=== PATIENT | female | born 1990 | race Caucasian/White ===

== ENCOUNTER 2016-10-08 16:03 | Emergency (ER) | payer OTHER ==
[~2016-10-08] VITALS: Ht 162.6 cm; Wt 59.1 kg
[~2016-10-08 16:03] MED LIST: CEPH500C3 PO; IBUP800 PO; PRENTAB72 PO
[2016-10-08 16:05] VITALS: BP 122/78; PULSE 90; RESP 16; TEMP 98; O2SAT 98
[2016-10-08 16:54] LABS: BACTERIA, URINE RARE /hpf; BLOOD, URINE MOD (NEG); COMMENT (UR) CULT NOT INDICATED; CULTURE IF INDICATED CULT NOT INDICATED; GLUCOSE,URINE NEG (NEG); KETONE, URINE TRACE mg/dL (NEG); MUCUS URINE FEW /lpf (OCC); NITRITE,URINE NEG (NEG); PH, URINE 6.5 (5.0-8.5); SQUAMOUS EPITHELIAL CELL URINE 3 /hpf (0-5); URINE COLOR YELLOW (YELLW/STRAW)
--- NOTE | 2016-10-08 17:28 | PD ---
HPI Chief Complaint: Headache Time Seen by Provider: 17:25 Travel History International Travel<30 days: No Contact w/Intl Traveler<30days: No Traveled to known affect area: No History of Present Illness HPI 26-year-old female with multiple complaints. First complaint is left lower tooth pain for approximately one week with worsening. She used an over-the- counter cement tooth gilbert and has had increasing pain over the past few days. Denies facial erythema, edema. Pain is worse with chewing food and touch to the tooth. Denies fever, chills, nausea, vomiting. Second complaint is right- sided headache. She has history of headaches and this is similar to past headaches. Pounding in nature. Reports photophobia. Denies vomiting. Denies focal deficits or weakness. Denies change in mentation, confusion, disorientation. Took 2 Percocets with minimal relief of headache or tooth pain. Used to have to take Imitrex for her headaches but hasn't taken it because she hasn't had a headache in a while. Third complaint is dysuria 4 days. Denies urgency, hesitancy, frequency. Reports hematuria. Reports history of kidney stones. Denies abdominal pain, flank pain, back pain. Denies vaginal discharge, odor, itch, lesions. Allergies to penicillins and wasp. No other modifying factors or associated signs and symptoms. PFSH Past Medical History Asthma: No Autoimmune Disease: No Blood Disorders: No Anxiety: No Depression: No Heart Rhythm Problems: No Cardiovascular Problems: No Chest Pain: No Cystic Fibrosis: No Diminished Hearing: No Gastrointestinal Disorders: No Genitourinary: Yes (KIDNEY INFECTION 03/2006) Headaches: Yes Hypertension: No Musculoskeletal: No Neurologic: No Psychiatric: No Reproductive: No Respiratory: No Immunizations Current: Yes Migraines: No Seizures: No Sickle Cell Disease: No Sleep Apnea: No ?: Not : 2 Para: 1 Miscarriage: 1 : 0 Ectopic : No Ovarian Cysts: No Tubal Ligation: No Past Surgical History Abdominal Surgery: No Appendectomy: No Cardiac Surgery: No Cholecystectomy: No Ear Surgery: No Endocrine Surgery: No Eye Surgery: No Genitourinary Surgery: No Gynecologic Surgery: No Hysterectomy: No Neurologic Surgery: No Oral Surgery: Yes (CYNST REMOVAL UNDER TONGUE ABOUT 2 YO. AND SURGERY ON TEETH 12 YO.) Thoracic Surgery: No Other Surgery: Yes Social History Alcohol Use: No Tobacco Use: Yes (09/17 ppd) Substance Use: No Allergies-Medications (Allergen,Severity, Reaction): Coded Allergies: Amoxicillin (Verified Allergy, Severe, HIVES AND THROAT CLOSES, 10/08/16) Penicillin (Verified Allergy, Severe, HIVES/THROAT CLOSES, 10/08/16) Wasp (Verified Allergy, Severe, HIVES, 10/08/16) Reported Meds & Prescriptions Reported Meds & Active Scripts Active Ibuprofen 800 Mg Tab 800 Mg PO Q6HR PRN Magic Mouthwash Adult Liq (Multi-Ingredient Mouthwash/Gargle) 120 Ml Susp 5 Ml SWISH-SPIT Q3HR NEB PRN Each 5 mL contains: Nystatin 200,000 units, Diphenhydramine 4.25 mg, Viscous Lidocaine 10 mg, Foss syrup 0.8 mL Peridex Liq (Chlorhexidine Gluconate (Mouth) Liq) 0.12% Soln 15 Ml SWISH-SPIT BID 10 Days Clindamycin (Clindamycin HCl) 150 Mg Cap 450 Mg PO Q6H 10 Days Review of Systems Except as stated in HPI: all other systems reviewed are Neg Physical Exam Narrative GENERAL: Well-nourished, well-developed patient, in no acute distress SKIN: Warm and dry. HEAD: Atraumatic. Normocephalic. No facial droop noted. Tongue midline. No facial erythema or edema. No lymphadenopathy. No tenderness on palpation. EYES: Pupils equal and round at 4 mm with brisk reaction. No scleral icterus. No injection or drainage. PERRLA. EOMI. EARS: Bilateral pinnae and external canals appear within normal limits. Bilateral tympanic membranes without erythema, dullness or perforation. ENT: Mucosa pink and moist. No erythema or exudates. No uvular edema. No uvular , palatal, or tonsillar deviation. Airway patent. MOUTH: Mucous membranes moist, no lesions, tongue and gums appear normal. Left lower first molar with tenderness on palpation; without erythema, edema, drainage; no obvious abscess noted. NECK: Trachea midline. No lymphadenopathy. CARDIOVASCULAR: Regular rate and rhythm. No murmur appreciated. RESPIRATORY: No accessory muscle use. Clear to auscultation. Breath sounds equal bilaterally. GASTROINTESTINAL: Abdomen soft, non-tender, nondistended. Hepatic and splenic margins not palpable. Bowel sounds are active 4 quadrants. Bladder nontender and nondistended. MUSCULOSKELETAL: No obvious deformities. No clubbing. No cyanosis. No edema. BACK: No CVA tenderness NEUROLOGICAL: Awake and alert. Oriented 3. No obvious cranial nerve deficits. Motor grossly within normal limits. Normal speech. No ataxia. No mid -line drift. Moves all extremities. 5/5 strength to all extremities. PSYCHIATRIC: Appropriate mood and affect; insight and judgment normal. Data Data Last Documented VS Vital Signs Date Time Temp Pulse Resp B/P Pulse Ox O2 Delivery O2 Flow Rate FiO2 10/08/16 16:05 98.0 90 16 122/78 98 Room Air Orders Urinalysis - C+S If Indicated (10/08/16 16:10) Ketorolac Inj (Toradol Inj) (10/08/16 17:30) Ondansetron Odt (Zofran Odt) (10/08/16 17:30) Diphenhydramine (Benadryl) (10/08/16 17:30) Labs Laboratory Tests Test 10/08/16 16:23 Urine Color YELLOW Urine Turbidity CLEAR Urine pH 6.5 Urine Specific [place] 1.024 Urine Protein 100 mg/dL Urine Glucose (UA) NEG mg/dL Urine Ketones TRACE mg/dL Urine Occult Blood MOD Urine Nitrite NEG Urine Bilirubin NEG Urine Urobilinogen 2.0 MG/DL Urine Leukocyte Esterase NEG Urine RBC 119 /hpf Urine WBC 1 /hpf Urine Squamous Epithelial 3 /hpf Cells Urine Bacteria RARE /hpf Urine Mucus FEW /lpf Microscopic Urinalysis Comment CULT NOT INDICATED MDM Medical Decision Making Medical Screen Exam Complete: Yes Emergency Medical Condition: Yes Medical Record Reviewed: Yes Differential Diagnosis Acute headache, dentalgia, dental abscess, cystitis, UTI, kidney stone Narrative Course 26-year-old female with multiple complaints. First complaint is consistent with acute headache that is consistent with past headaches. Second complaint is consistent with left lower dentalgia. Third complaint is dysuria. Urinalysis ordered. Toradol, Zofran, Benadryl administered in the ER. 1720: Urinalysis with no signs of infection; with occult blood and high RBCs. Patient denies being on her menses. Does have history of kidney stones. Denies abdominal pain, flank pain, low back pain at this time. Reports improvement in headache. Clindamycin, Magic mouthwash, Peridex mouth rinse, ibuprofen prescribed for home. Emergency information dental sheet provided. Instructed patient to follow up with dentist and she verbalized understanding and agreement. Patient is medically cleared and stable for discharge. Discussed reasons to return to the emergency department. Instructed patient to follow up with primary care provider. Patient agrees with treatment plan. The patients vital signs are stable and the patient is stable for outpatient follow- up and treatment. Patient discharged home, stable and in no acute distress. Diagnosis Primary Impression: Dentalgia Additional Impressions: Acute headache Qualified Code: R51 - Acute nonintractable headache, unspecified headache type Cystitis Referrals: Dentist Primary Care Physician Patient Instructions: Acute Headache (ED), Dental Abscess (ED), Dysuria (ED), General Instructions, Tooth Extraction (ED) Departure Forms: Tests/Procedures, Work Release Enter return to work date: Oct 09, 2016 Additional Instructions: Ibuprofen or Tylenol as directed and as needed to reduce headache Get plenty of rest: do not over sleep rest and relax in a dark, quiet room as needed Place an ice pack on the back of her neck to reduce head pain as needed Keep a headache diary of what triggers her headaches and what treatment is most effective Avoid identifiable triggers Avoid smoking, alcohol and caffeine consumption Reduce stress Follow-up with primary care provider within 1-2 days Follow-up with neurology Return immediately to the emergency department with worsening symptoms Take antibiotics as prescribed and complete full course Take Pyridium for bladder spasms: Pyridium will turn your urine bright orange Drink plenty of fluids Maintain good personal hygiene Follow-up with primary care provider Return to the emergency department immediately with worsening of symptoms Complete full course of antibiotics Ibuprofen as directed and as needed to reduce pain and inflammation Use Magic mouthwash rinse as directed and as needed to decrease pain Use Peridex as directed for oral hygiene Warm compresses to the affected area Follow-up with dentist Follow-up with primary care provider Return to emergency department immediately with worsening of symptoms Med/Other Pt SpecificInfo: Prescription(s) given Scripts Ibuprofen 800 Mg [id number] Mg PO Q6HR PRN (PAIN) #30 TAB Ref 0 Prov:Keisha Xiao 10/08/16 [id number]-Gimgwzzjz Liq (Magic Mouthwash Adult Liq)120 Ml Susp5 Ml SWISH-SPIT Q3HR NEB PRN (PAIN SCALE 1 TO 10) #120 ML Ref 0 Each 5 mL contains: Nystatin 200,000 units, Diphenhydramine 4.25 mg, Viscous Lidocaine 10 mg, Foss syrup 0.8 mL Prov:Keisha Xiao 10/08/16 Chlorhexidine Gluconate (Mouth) Liq (Peridex Liq)0.12% Soln15 Ml SWISH-SPIT BID 10 Days Ref 0 Prov:Keisha Xiao 10/08/16 Clindamycin 150 Mg [id number] Mg PO Q6H 10 Days Ref 0 Prov:Keisha Xiao 10/08/16 Disposition: 01 DISCHARGE HOME Condition: Stable Keisha Xiao Oct 08, 2016 17:28
[2016-10-08] MEDS ORDERED: ONDANSETRON ODT 4 MG TAB PO ONE (17:30)
[2016-10-08] MEDS ORDERED: diphenhydrAMINE HCL 50 MG CAP PO ONE (17:30)
[2016-10-08] MEDS ORDERED: KETOROLAC TROMETHAMINE 60 MG/2 ML (IM) VIAL IM ONE (17:30)
[2016-10-08] MEDS ORDERED: IBUP800T23 PO (17:32)
[2016-10-08] MEDS ORDERED: CLIN1CAP5 PO (17:32)
[2016-10-08] MEDS ORDERED: PERI0.126 SWISH-SPIT (17:32)
[2016-10-08] MEDS ORDERED: MAGICADU2 SWISH-SPIT (17:32)
== END 2016-10-08 18:07 | disposition home or self-care (01) ==
LOC: NEPB 16:03
DX: K08.89 Other specified disorders of teeth and supporting structures (principal); R51 Headache; N30.90 Cystitis, unspecified without hematuria; Z87.442 Personal history of urinary calculi; F17.210 Nicotine dependence, cigarettes, uncomplicated
CPT/HCPCS: 81001; 96372; 99284; J1885; Q0163